=== PATIENT | female | born 1980 | race Caucasian/White ===

== ENCOUNTER 2016-07-10 12:40 | Emergency (ER) | payer BC ==
[~2016-07-10 12:40] MED LIST: IBUPROFEN800 M1 PO; MAGNESIUM250 MG PO; MOTRIN800 MG PO; OXYCODONE/APAP PO; PERCOCET 5-3251 EACH PO; PERCOCET 5/3251 TAB PO; PRENATAL1 EACH PO; VALACYCLOVIR500 MG PO; VALTREX500 M1 PO; VALTREX500 MG PO; VITAMIN B2100 MG PO
[2016-07-10] MEDS ORDERED: JUNEL 1.5 MG-31 EACH PO (14:17)
[2016-07-10] MEDS ORDERED: AUGMENTIN 875-1 EAC2 PO (17:41)
[2016-07-10] MEDS ORDERED: MECLIZINE HCL25 M3 PO (17:44)
== END 2016-07-10 17:57 ==
LOC: EDMED 12:40
DX: H70.92 Unspecified mastoiditis, left ear (principal); R42 Dizziness and giddiness; R51 Headache
CPT/HCPCS: A9577; J7030